=== PATIENT | female | born 1955 | race Caucasian/White ===

== ENCOUNTER 2019-08-30 07:10 | Inpatient (IN) | payer OTHER ==
[2019-08-14 12:25] VITALS: BMI 39.4
[2019-08-30] MEDS ORDERED: VANCOMYCIN 1,000 MG VIAL (RESTRICTED TO ID ONLY) ONE ×2 (07:23→14:16)
[2019-08-30] MEDS ORDERED: CEFAZOLIN 2 GM in DEXTROSE 5%-WATER - 50 ML IVPB ONE ×2 (07:23→07:33)
[2019-08-30] MEDS ORDERED: SODIUM CHLORIDE 0.9% P/F 10 ML VIAL IJ ONE (07:23)
[2019-08-30] MEDS ORDERED: TRANEXAMIC ACID 1000 MG/10 ML VIAL IVPUSH ONE ×2 (07:23→07:33)
[2019-08-30] MEDS ORDERED: ceFAZolin SODIUM 1 GM VIAL ONE (07:23)
[2019-08-30] MEDS ORDERED: SUCCINYLCHOLINE CHLORIDE 200 MG/10 ML SYRINGE ONE (07:23)
[2019-08-30] MEDS ORDERED: VANCOMYCIN 1,000 MG in DEXTROSE 5%-WATER - 250 ML IVPB ONE (07:23)
[2019-08-30] MEDS ORDERED: PROPOFOL 20 ML ONE ×3 (07:24)
[2019-08-30] MEDS ORDERED: VANCOMYCIN 1,250 MG in DEXTROSE 5%-WATER - 250 ML IVPB ONE (07:33)
[2019-08-30] MEDS ORDERED: BUPIVACAINE LIPOSOME/PF (EXPAREL) 266 MG/20 ML VIAL ONE (08:52)
[2019-08-30] MEDS ORDERED: MIDAZOLAM HCL 2 MG/2 ML SINGLE DOSE VIAL ONE ×2 (08:52→11:32)
[2019-08-30] MEDS ORDERED: BUPIVACAINE HCL/PF 0.5% (5 MG/ML) 30 ML VIAL IJ ONE (08:52)
[2019-08-30] MEDS ORDERED: WATER FOR INJ,STERILE 10 ML ONE (08:53)
[2019-08-30] MEDS ORDERED: BUPIVACAINE HCL/PF 0.5% (5MG/ML) 10 ML VIAL ONE (10:39)
[2019-08-30] MEDS ORDERED: PHENYLEPHRINE HCL 10 MG/1 ML SINGLE DOSE VIAL ONE (11:13)
[2019-08-30] MEDS ORDERED: MAGNESIUM HYDROX 2400MG/30ML ORAL SUSPENSION 30 ML CUP PO PRN (13:08)
[2019-08-30] MEDS ORDERED: MAG HYDROX/AL HYDROX/SIMETH 30 ML UNIT-DOSE CUP PO PRN (13:08)
[2019-08-30] MEDS ORDERED: ONDANSETRON 4 MG/2 ML VIAL IVPUSH PRN ×2 (13:08→13:57)
[2019-08-30] MEDS ORDERED: CYCLOBENZAPRINE HCL 10 MG TABLET (FP) PO PRN (13:12)
[2019-08-30] MEDS ORDERED: MELATONIN 5 MG TABLETS PO PRN (13:12)
[2019-08-30] MEDS ORDERED: LACTATED RINGERS SOLUTION 1,000 ML IV SCH ×2 (13:15→14:00)
[2019-08-30] MEDS ORDERED: oxyCODONE HCL 5 MG TABLET PO PRN (13:57)
[2019-08-30] MEDS ORDERED: ACETAMINOPHEN 1000 MG/100 ML VIAL (NON FORMULARY) IVPB ONE (13:57)
[2019-08-30] MEDS ORDERED: traMADol HCL 50 MG TABLET PO PRN (13:57)
[2019-08-30] MEDS: oxyCODONE HCL 5 MG TABLET PO PRN ×3 (16:31→21:06)
[2019-08-30] MEDS: CEFAZOLIN 1 GM/D5W 1 GM/50 ML BAG IVPB SCH (17:08)
[2019-08-30] MEDS: FERROUS SO4 325 MG TABLET (FP) PO SCH (17:08)
[2019-08-30] MEDS ORDERED: KETOROLAC TROMETHAMINE 30 MG/1 ML VIAL IVPUSH ONE (18:30)
[2019-08-30] MEDS: ASCORBIC ACID 500 MG TABLET (FP) PO SCH (21:04)
[2019-08-30] MEDS: PANTOPRAZOLE 40 MG TABLET (FP) PO SCH (21:05)
[2019-08-30] MEDS: ASPIRIN 81 MG CHEWABLE TABLETS PO SCH (21:05)
[2019-08-30] MEDS: SENNOSIDES/DOCUSATE COMBO (SENNA PLUS) TABLET (UD) PO SCH (21:05)
[2019-08-30] MEDS: ACETAMINOPHEN 325 MG TABLET (FP) PO SCH (21:05)
[2019-08-30] MEDS: oxyCODONE HCL 10 MG SUSTAINED ACTING TABLET PO SCH (21:06)
[2019-08-30] MEDS: MONTELUKAST NA 10 MG TABLET PO SCH (21:08)
[2019-08-30] MEDS ORDERED: VANCOMYCIN 1 GRAM (PRE-DOCKED) 1,000 MG/250 ML BAG IVPB ONE (21:30)
[2019-08-31] MEDS: oxyCODONE HCL 5 MG TABLET PO PRN ×6 (00:41→20:29)
[2019-08-31] MEDS: CEFAZOLIN 1 GM/D5W 1 GM/50 ML BAG IVPB SCH (01:22)
[2019-08-31] MEDS: ACETAMINOPHEN 325 MG TABLET (FP) PO SCH ×4 (02:19→20:28)
--- NOTE | 2019-08-31 04:18 | HP ---
CHIEF COMPLAINT: Right knee pain HISTORY OF PRESENT ILLNESS: 64 year-old female with a PMH significant for HTN, Type II NIDDM, GERD, and DJD s/p right total knee replacement on 08/[address] Marshall. PAST MEDICAL HISTORY: Hypertension Type II NIDDM GERD PAST SURGICAL HISTORY: Breast cyst Social History: Smoking: no Alcohol: no Drugs: no Allergies No Known Drug Allergies Allergy (Verified 08/14/19 12:11) HOME MEDICATIONS: Home Medications Medication Instructions Recorded Cyclobenzaprine HCl 10 mg PO ASDIR PRN 08/14/19 Ibuprofen 800 mg PO ASDIR PRN 08/14/19 Losartan/Hydrochlorothiazide 1 each PO DAILY 08/14/19 [Losartan-Hctz 100-25 mg Tab] Melatonin 5 mg PO HS PRN 08/14/19 Montelukast Sodium [Singulair] 10 mg PO HS 08/14/19 Pantoprazole Sodium [Protonix] 40 mg PO HS 08/14/19 REVIEW OF SYSTEMS CONSTITUTIONAL: Absent: fever, chills, diaphoresis, generalized weakness, malaise, loss of appetite, weight change HEENT: Absent: rhinorrhea, nasal congestion, throat pain, throat swelling, difficulty swallowing, mouth swelling, ear pain, eye pain, visual changes CARDIOVASCULAR: Absent: chest pain, syncope, palpitations, irregular heart rate, lightheadedness , peripheral edema RESPIRATORY: Absent: cough, shortness of breath, dyspnea with exertion, orthopnea, wheezing, stridor, hemoptysis GASTROINTESTINAL: Absent: abdominal pain, abdominal distension, nausea, vomiting, diarrhea, constipation, melena, hematochezia GENITOURINARY: Absent: dysuria, frequency, urgency, hesitancy, hematuria, flank pain, genital pain MUSCULOSKELETAL: Absent: myalgia, arthralgia, joint swelling, back pain, neck pain SKIN: Absent: rash, itching, pallor HEMATOLOGIC/IMMUNOLOGIC: Absent: easy bleeding, easy bruising, lymphadenopathy, frequent infections ENDOCRINE: Absent: unexplained weight gain, unexplained weight loss, heat intolerance, cold intolerance NEUROLOGIC: Absent: headache, focal weakness or paresthesias, dizziness, unsteady gait, seizure, mental status changes, bladder or bowel incontinence PSYCHIATRIC: Absent: anxiety, depression, suicidal or homicidal ideation, hallucinations. PHYSICAL EXAMINATION Vital Signs - 24 hr 08/30/19 08/30/19 08/30/19 07:57 13:45 13:50 Temperature 98.5 F 97.8 F Pulse Rate 85 74 76 Respiratory 18 16 16 Rate Blood Pressure 113/87 108/60 114/76 O2 Sat by Pulse 100 100 Oximetry (%) 08/30/19 08/30/19 08/30/19 13:55 14:00 14:15 Temperature Pulse Rate 78 77 67 Respiratory 16 16 16 Rate Blood Pressure 105/53 L 102/44 L 100/53 L O2 Sat by Pulse 100 100 100 Oximetry (%) 08/30/19 08/30/19 08/30/19 14:30 14:45 14:52 Temperature Pulse Rate 71 68 68 Respiratory 16 16 16 Rate Blood Pressure 108/48 L 114/51 L 126/59 L O2 Sat by Pulse 100 100 100 Oximetry (%) 08/30/19 08/30/19 08/30/19 15:15 19:00 22:33 Temperature 97.4 F L 98.6 F 98.3 F Pulse Rate 72 77 86 Respiratory 16 19 16 Rate Blood Pressure 136/59 L 140/57 L 130/61 O2 Sat by Pulse 100 99 99 Oximetry (%) 08/31/19 01:58 Temperature 98.5 F Pulse Rate 82 Respiratory 18 Rate Blood Pressure 140/62 O2 Sat by Pulse 100 Oximetry (%) GENERAL: Awake, alert, and fully oriented, in no acute distress. LUNGS: Breath sounds equal, clear to auscultation bilaterally. No wheezes, and no crackles. No accessory muscle use. HEART: Regular rate and rhythm, normal S1 and S2 ABDOMEN: Soft, nontender, not distended UPPER EXTREMITIES: 2+ pulses, warm, well-perfused. No cyanosis. No clubbing. No peripheral edema. LOWER EXTREMITIES: 2+ pulses, warm, well-perfused. No calf tenderness. No peripheral edema. RLE: surgical dressings c/d/i; + Hemovac drain CBCD WBC 13.4 K/mm3 (4.0-10.8) H 08/31/19 07:08 RBC 3.74 M/mm3 (3.60-5.2) 08/31/19 07:08 Hgb 11.4 GM/dl (10.7-15.3) 08/31/19 07:08 Hct 33.6 % (32.4-45.2) 08/31/19 07:08 MCV 89.8 fl (80-96) 08/31/19 07:08 MCHC 34.0 g/dl (32.0-36.0) 08/31/19 07:08 RDW 13.2 % (11.6-15.6) 08/31/19 07:08 Plt Count 293 K/MM3 (134-434) 08/31/19 07:08 MPV 7.5 fl (7.5-11.1) 08/31/19 07:08 CMP Sodium 134 mmol/L (136-145) L 08/31/19 07:08 Potassium 3.8 mmol/L (3.5-5.1) 08/31/19 07:08 Chloride 97 mmol/L (98-107) L 08/31/19 07:08 Carbon Dioxide 28 mmol/L (21-32) 08/31/19 07:08 Anion Gap 9 MMOL/L (8-16) 08/31/19 07:08 BUN 12.0 mg/dl (7-18) 08/31/19 07:08 Creatinine 0.7 mg/dl (0.55-1.3) 08/31/19 07:08 Calcium 8.8 mg/dl (8.5-10) 08/31/19 07:08 Pre op Hgb 13.2 BUN 19 Cr 0.8 Intra op Crystalloid 1L Vanc x 1g; ancef 2g x 1 ASSESSMENT/PLAN: 64 year-old female with a PMH significant for HTN, Type II NIDDM, GERD, and DJD s/p right total knee replacement on 08/[address] Marshall. s/p Right total knee replacement --POD #1 --perioperative antibiotics per surgery --pain management per surgery --ASA 81mg BID --protonix --bowel regimen --incentive spirometry --Hemovac drain, monitor output Hypertension --BP stable --continue losartan, HCTZ Type II NIDDM --Novolog sliding scale coverage GERD --protonix FEN Fluids: PO intake adequate Electrolytes: replete as indicated Nutrition: regular diet DVT prophylaxis: OOB, ambulation, SCDs, TEDs, ASA 81mg BID Physical therapy Dispo: continues to require inpatient care. Full code. Visit type - Emergency Visit Emergency Visit: No - New Patient This patient is new to me today: Yes Date on this admission: 08/31/19 - Critical Care Critical Care patient: No
[2019-08-31 07:16] LABS: HEMATOCRIT 33.6 % (32.4-45.2); HEMOGLOBIN 11.4 GM/dl (10.7-15.3); MCH 30.6 pg (25.7-33.7); MEAN CELL VOLUME 89.8 fl (80-96); MEAN PLT VOLUME 7.5 fl (7.5-11.1); PLATELET COUNT 293 K/MM3 (134-434); RBC 3.74 M/mm3 (3.60-5.2); RDW 13.2 % (11.6-15.6); WHITE BLOOD COUNT 13.4 K/mm3 (4.0-10.8)
[2019-08-31 07:29] LABS: CALCIUM 8.8 mg/dl (8.5-10); CREATININE 0.7 mg/dl (0.55-1.3); MAGNESIUM 1.6 mg/dL (1.8-2.4); POTASSIUM 3.8 mmol/L (3.5-5.1)
--- NOTE | 2019-08-31 07:45 | PN ---
Progress Note (short form) - Note Progress Note: POD #1 s/p Rt TKA No acute events since surgery per RN notes. C/o a lot of incisional pain. Pain somewhat controlled by medications ordered. Difficulty sleeping last night. Only oob to chair with assist. Voiding spontaneously. Denies n/v/f/c, CP, palpitations, SOB or DICKSON. Last Vital Signs Temp Pulse Resp BP Pulse Ox 98.5 F 91 H 18 122/52 L 95 08/31/19 06:00 08/31/19 06:00 08/31/19 01:58 08/31/19 06:00 08/31/19 06:00 CBC, BMP 08/31/19 07:08 08/31/19 07:08 DRAIN OUTPUT 08/30/19 08/30/19 08/31/19 18:38 22:33 06:00 RLE Hemeovac 100 65 120 GEN: nad LE: RLE dressing c/d/i. HV w/ sanguinous drainage. SCDs bilat Neuro: GMNVI bilat. Problem List - Problems (1) Status post total right knee replacement Assessment/Plan: POD #1 s/p Rt TKA - Anasthesia notified and will address pain control. - DVT PPx: -Chemical: ASA 81 mg po BID x 6 weeks -Mechanical: CAPRICE's, SCD's -Incentive Spirometer -PT/OT/Rehab, OOB. -WBAT RLE. -f/u drain output -Care per medical hospitalist team. -Case Management w/ regards for possible REHAB pending PT eval . Code(s): Z96.651 - PRESENCE OF RIGHT ARTIFICIAL KNEE JOINT (2) Osteoarthritis of right knee Code(s): M17.11 - UNILATERAL PRIMARY OSTEOARTHRITIS, RIGHT KNEE (3) HTN (hypertension) Assessment/Plan: BP control Code(s): I10 - ESSENTIAL (PRIMARY) HYPERTENSION
[2019-08-31] MEDS ORDERED: MAGNESIUM OXIDE 400 MG TABLET (FP) PO ONE (07:48)
[2019-08-31] MEDS ORDERED: KETOROLAC TROMETHAMINE 15 MG/ML VIAL IVPUSH PRN (08:30)
[2019-08-31] MEDS: FERROUS SO4 325 MG TABLET (FP) PO SCH ×2 (09:34→17:34)
[2019-08-31] MEDS: LOSARTAN 50MG/HCTZ 12.5MG 1 TAB (FP) PO SCH (09:35)
[2019-08-31] MEDS: SENNOSIDES/DOCUSATE COMBO (SENNA PLUS) TABLET (UD) PO SCH ×2 (09:35→21:23)
[2019-08-31] MEDS: oxyCODONE HCL 10 MG SUSTAINED ACTING TABLET PO SCH ×2 (09:37→21:23)
[2019-08-31] MEDS: ASCORBIC ACID 500 MG TABLET (FP) PO SCH ×2 (09:37→21:24)
[2019-08-31] MEDS: ASPIRIN 81 MG CHEWABLE TABLETS PO SCH ×2 (09:41→21:23)
[2019-08-31] MEDS: MULTIVITAMINS (DAILY MVI) TABLET (FP) PO SCH (09:41)
[2019-08-31] MEDS ORDERED: PATIENT'S OWN MEDICATION (NON-FORMULARY) (Losartan/Hydrochlorothiazide [Losartan-Hctz 100- PO SCH (10:00)
[2019-08-31] MEDS ORDERED: PANTOPRAZOLE 40 MG TABLET (FP) PO SCH (10:00)
--- NOTE | 2019-08-31 11:03 | PN ---
Progress Note (short form) - Note Progress Note: 64F s/p RIGHT total knee replacement POD #0. -Pain control: per anaesthesia team. -DVT PPx: -Chemical: ASA 81mg PO BID x 6 weeks. -Mechanical: CAPRICE's, SCD's. -Incentive spirometry q15 min. -PT/OT/Rehab, OOB. -WBAT RLE. -Post-op Ancef x 2 doses. -f/u post-op TOV: 8 hours max. -f/u AM labs. -Diet as tolerated. -Care per medical hospitalist team. -Discharge planning: f/u [facility] [place] [facility] 09/07/2019; call for appointment . -Will follow. Dean Marshall MD (Orthopaedic Surgery).
--- NOTE | 2019-08-31 11:04 | PN ---
Progress Note (short form) - Note Progress Note: 64F s/p RIGHT total knee replacement POD #0. -Pain control: per anaesthesia team. -DVT PPx: -Chemical: ASA 81mg PO BID x 6 weeks. -Mechanical: CAPRICE's, SCD's. -Incentive spirometry q15 min. -PT/OT/Rehab, OOB. -WBAT RLE. -Post-op Ancef x 2 doses. -f/u post-op TOV: 8 hours max. -f/u AM labs. -Diet as tolerated. -Care per medical hospitalist team. -Discharge planning: f/u [facility] [place] [facility] 09/07/2019; call for appointment . -Will follow. Dean Marhsall MD (Orthopaedic Surgery).
--- NOTE | 2019-08-31 11:10 | PN ---
Progress Note (short form) - Note Progress Note: POD 1 s/p R knee arthroplasty under spinal/R adductor canal block/ R selective tibial nerve block. Patient c/o pain overnight, now better controlled with the addition of scheduled Oxycontin po and Toradol IV. Patient actively participating in physical therapy. Reassurance given and encouraged patient to utilize additional prn po oxycodone and Toradol IV.
--- NOTE | 2019-08-31 11:10 | OP ---
Operative Note - Note: Operative Date: 08/30/19 Pre-Operative Diagnosis: Right knee DJD Operation: Right TKA Implants: Marizol Triathlon. Femur - 3. Tibia - 3. Poly - 9mm. Patella - 27mm, symmetric Surgeon: Dean Marshall Sewing Supervisor: Tobias Masrhall Anesthesiologist/JOB PLACEMENT SPECIALIST: Zurdo De Santiago Anesthesia: Spinal Specimens Removed: Bone, soft tissue Estimated Blood Loss (mls): 50 Fluid Volume Replaced (mls): 1,000 (Crystalloid) Operative Report Dictated: Yes
[2019-08-31] MEDS: PANTOPRAZOLE 40 MG TABLET (FP) PO SCH (21:23)
[2019-08-31] MEDS: MONTELUKAST NA 10 MG TABLET PO SCH (21:24)
[2019-09-01] MEDS: ACETAMINOPHEN 325 MG TABLET (FP) PO SCH ×3 (03:25→09:32)
[2019-09-01] MEDS: oxyCODONE HCL 5 MG TABLET PO PRN (05:37)
[2019-09-01 06:52] VITALS: BP 127/57; PULSE 97; TEMP 98.5
[2019-09-01 07:50] LABS: HEMATOCRIT 31.4 % (32.4-45.2); HEMOGLOBIN 10.9 GM/dl (10.7-15.3); MCH 31.2 pg (25.7-33.7); MCHC 34.7 g/dl (32.0-36.0); PLATELET COUNT 266 K/MM3 (134-434); RBC 3.49 M/mm3 (3.60-5.2); RDW 12.8 % (11.6-15.6); WHITE BLOOD COUNT 15.1 K/mm3 (4.0-10.8)
--- NOTE | 2019-09-01 09:27 | PN ---
Progress Note (short form) - Note Progress Note: POD 2, s/p R TKR Pt seen and examined. Reports she is doing "okay". Continues to have some pain with ambulation/excessive movement of the leg. Was oob with PT yesterday without issue. Tolerating Po, voiding without issue. Denies cp/sob, n/v/d. Vital Signs Temp 98.5 F 09/01/19 06:00 Pulse 97 H 09/01/19 06:00 Resp 17 09/01/19 06:00 BP 127/57 L 09/01/19 06:00 Pulse Ox 96 09/01/19 06:00 Intake & Output 08/31/19 08/31/19 09/01/19 11:59 23:59 11:59 Intake Total 600 240 Output Total 120 340 130 Balance -120 260 110 Weight 178 lb 15.999 oz Intake: Oral 600 240 Output: Drainage 120 190 30 Right Knee 120 190 30 Urine 150 100 Void 150 100 Other: Voiding Method Bedpan Toilet Toilet # Unmeasured Voids Void 2 2 Bowel Movement No CBC, BMP 09/01/19 07:35 08/31/19 07:08 Gen: awake, alert, nad. Sitting in chair Resp: unlabored on RA LE: RLE with dressing c/d/i, ice packs in place, drain in place with scant serosanguinous drainage in reservoir. Drain removed, tip intact, pt tolerated well. 4x[address] for <5mins with cessation of oozing, harman re-dressed. B/L LE's 5/5 dorsi/plantarflexion, 5/5 ehl/fhl, silt b/l les, mild edema noted, compartments soft. SCDS in place and on A/P: 64 y/o F w/ PMHx HTN, Type II NIDDM, GERD, and DJD admitted for elective joint replacement, now POD 2, s/p right total knee replacement on 08/30. Low grade temp 100F overnight, IS encouraged, mildly tachy overnight (likely due to pain), remainder of VSS Labs stable YOANA output 30ml overnight, removed without issue. -D/C instructions including pain regimen plan discussed at length with pt. Pt verbalized understanding -Importance of adherence to ASA 81mg bid for DVT prophylaxis discussed at length -Requesting d/c today -All scripts sent d/w attendings dr Brown
[2019-09-01] MEDS: LOSARTAN 50MG/HCTZ 12.5MG 1 TAB (FP) PO SCH (09:30)
[2019-09-01] MEDS: SENNOSIDES/DOCUSATE COMBO (SENNA PLUS) TABLET (UD) PO SCH (09:31)
[2019-09-01] MEDS: ASCORBIC ACID 500 MG TABLET (FP) PO SCH (09:31)
[2019-09-01] MEDS: MULTIVITAMINS (DAILY MVI) TABLET (FP) PO SCH (09:31)
[2019-09-01] MEDS: oxyCODONE HCL 10 MG SUSTAINED ACTING TABLET PO SCH (09:32)
[2019-09-01] MEDS: ASPIRIN 81 MG CHEWABLE TABLETS PO SCH (09:32)
--- NOTE | 2019-09-01 11:29 | DS ---
"Physical Exam: SUBJECTIVE: Patient seen and examined OBJECTIVE: Vital Signs Period Temp Pulse Resp BP Sys/Curran Pulse Ox Last 24 Hr 98.5 F-100.0 F 93-100 16-18 102-132/47-80 92-96 PHYSICAL EXAM GENERAL: Awake, alert, and fully oriented, in no acute distress. LUNGS: Breath sounds equal, clear to auscultation bilaterally. No wheezes, and no crackles. No accessory muscle use. HEART: Regular rate and rhythm, normal S1 and S2 ABDOMEN: Soft, nontender, not distended UPPER EXTREMITIES: 2+ pulses, warm, well-perfused. No cyanosis. No clubbing. No peripheral edema. LOWER EXTREMITIES: 2+ pulses, warm, well-perfused. No calf tenderness. No peripheral edema. RLE: surgical dressings c/d/i LABS Laboratory Results - last 24 hr 09/01/19 07:35 WBC 15.1 H RBC 3.49 L Hgb 10.9 Hct 31.4 L MCV 90.0 MCH 31.2 MCHC 34.7 RDW 12.8 Plt Count 266 MPV 8.0 HOSPITAL COURSE: Date of Admission:08/30/19 Date of Discharge: 09/01/19 64 year-old female with a PMH significant for HTN, Type II NIDDM, GERD, and DJD s/p right total knee replacement on 08/[address] Marshall. s/p Right total knee replacement --perioperative antibiotics complete --pain well-managed with PO meds --ASA 81mg BID x 6 weeks Minutes to complete discharge: 35 Discharge Summary Problems reviewed: Yes Reason For Visit: OSTEOARTHRITIS OF THE KNEES Current Active Problems HTN (hypertension) (Acute) Osteoarthritis of right knee (Acute) Status post total right knee replacement (Acute) Condition: Improved - Instructions Diet, Activity, Other Instructions: Dr. Marshall Discharge Instructions for Knee Replacement Post Operative Instructions Physical activity Physical Therapist will come to your home for the first 5 days. You will be set up with outpatient PT at your first post-operative visit. Use assistive devices for ambulation at all times. Weight bearing as tolerated on your surgical side. Do not put pillow under knee. May put pillow under heel. Wound care Leave your surgical dressing in place. Do not change the dressing until seen by your surgeon in the office. No baths or showers. Do not submerge your incision. Do not apply any ointments or lotions to your incision. Please call the office if your dressing is soiled/dirty or is falling off. Apply Graduated Compression Stockings (TEDS) to both lower extremities - remove daily for hygiene ONLY. Diet There are no dietary restrictions. Eat healthy, high-fiber foods. Drink 6 to 8 glasses of liquid each day. This will assist in keeping your bowels are regular. We recommend taking an over the counter stool softener daily if you are utilizing the narcotic pain medications as this can lead to constipation. If you become constipated you may use Miralax which can be purchased over the counter (please follow the drug abuse worker's dosage instructions). Pain management You may take (Tylenol) Acetaminophen 1000mg every 6 hours. Do not exceed more than 4g (4000mg) in 24 hours as this can lead to liver damage/failure. If you are taking 4g of Tylenol per day (the above regimen), do not continue this regimen for more then 10 days. You may take Ibuprofen as needed, please follow the drug abuse worker's dosage instructions. Do not exceed the dosage recommended by the drug abuse worker as this can lead to kidney damage/failure. We recommend keeping track of the dosage and time you take each medication to ensure you do not exceed the drug abuse worker's recommended daily dosage. Take Ibuprofen with food, Acetaminophen may be taken on an empty stomach. Any pain prescription medication ordered should be taken as prescribed for moderate to severe pain. If the pain regimen described above is not controlling your pain, please contact the office. Do not drive, drink alcohol or operate heavy machinery while taking narcotic pain medications. Do not mix narcotic pain medications with sedatives/benzodiazepines or sleeping aids unless discussed with your doctor. Take Aspirin 81 mg two times a day for a total of 6 weeks to prevent blood clots. Call Dr. Marshall for any of the following: Severe pain not relieved by medication Fever of 101 or higher Excessive bleeding or drainage on dressing Inability to urinate If you experience chest pain or shortness of breath, please seek emergency care immediately. Please call the office at to confirm your post-op appointment for the week following surgery. This report was requested by: Belia Rosario | Reference #: [id number] Others' Prescriptions Patient Name: Lynn Fowler Date: 1955 Address: [address] [place] [address] [address] [place] [address] Sex: Female Rx Written Rx Dispensed Drug Quantity Days Supply Prescriber Name 08/04/2019 08/10/2019 tramadol hcl 50 mg tablet 90 30 Dean Marshall MS, MD Referrals: Tobias Marshall MD [Staff Physician] - Disposition: HOME - Home Medications Comprehensive Discharge Medication List: Ambulatory Orders Cyclobenzaprine HCl 10 mg PO ASDIR PRN 08/14/19 Ibuprofen 800 mg PO ASDIR PRN 08/14/19 Losartan/Hydrochlorothiazide [Losartan-Hctz 100-25 mg Tab] 1 each PO DAILY 08/14 Melatonin 5 mg PO HS PRN 08/14/19 Montelukast Sodium [Singulair] 10 mg PO HS 08/14/19 Pantoprazole Sodium [Protonix] 40 mg PO HS 08/14/19 Acetaminophen 1,000 mg PO Q6H 7 Days #28 tablet 09/01/19 Aspirin [ASA -] 81 mg PO BID 42 Days #84 tab.chew 09/01/19 Docusate Sodium [Colace] 100 mg PO BID 10 Days #20 capsule 09/01/19 oxyCODONE HCL [Roxicodone -] 5 mg PO Q6H PRN #28 tablet MDD 5 09/01/19 This patient is new to me today: No Emergency Visit: No Critical Care patient: No - Discharge Referral Referred to [facility] No"
--- NOTE | 2019-09-04 15:54 | OP ---
DATE OF OPERATION: 08/30/2019 SURGEON: Dean Marshall MD IT TECHNICAL SUPPORT SPECIALIST: Tobias Marshall MD; Marissa Felipe PA-C PREOPERATIVE DIAGNOSIS: Tricompartment osteoarthritis, knee, with fixed valgus fixed flexion deformity. POSTOPERATIVE DIAGNOSIS: Tricompartment osteoarthritis, knee, with fixed valgus fixed flexion deformity. OPERATION PERFORMED: Right posterior stabilized total knee arthroplasty (cemented Marizol). ANESTHESIA: Conscious sedation with spinal anesthesia and peripheral nerve block. ANTIBIOTICS GIVEN: Kefzol 2 g, vancomycin 1 g, Kefzol 1 g given at the end of the procedure. OPERATION DETAILS: Patient correctly identified, brought to the operating room. Right lower extremity prepped and draped in the routine manner with Betadine scrub solution, wiped off with alcohol, DuraPrep applied. A timeout was called. Imaging was available for intraoperative evaluation. A midline incision was utilized. Skin and subcutaneous tissue taken down to the quadriceps mechanism. The first part of the dissection was along the proximal medial aspect of the tibia alongside the medial tibial tubercle. The soft tissue was freed off the bone bed and then curved at almost 70 degrees to aim posteromedially, leaving a cuff of tissue attached to the inferior border of vastus medialis. The epimysium of the vastus medialis was dissected off the muscle all the way around to the medial aspect of the attachment to the intermuscular plane. The muscle was lifted and dissected off the intermuscular plane, bringing complete freedom of the muscle for a sub-vastus approach. In the plane above the suprapatellar pouch, a blunt Hohmann was placed to help mobilize the patella laterally. The suprapatellar pouch was incised. This freed it completely and the suprapatellar femoral bone bed was resected of all soft tissue using unipolar Bovie. The patella was cut immediately because of the large bulk of the patella. This was also a bipartite patella in situ. The patella was held with 2 sharp towel clamps and a Hohmann placed on the undersurface of the patella, everting it, and an easy cut of the patella freehand from patellar ligament to quadriceps tendon, blunt, performed. A 27-mm lollypop jig applied and the drill holes were drilled. Once this had been applied, the tibia was cut to neutral and measured to receive a size 3 tibial tray. The femur then, appropriately, femoral jigs were inserted, first by the initial starting drill hole, slightly medial of the insertion point of the posterior cruciate ligament attachment. The femoral condyle was deficient both distally as well as posteriorly. Utilizing the concept of Lavinia's line to line up the intercondylar within the confines of the trochlear groove, the jig was set and the setting was for a 4-degree valgus +10 mm distal resection, that is, proximalization of the joint line to accommodate the fixed flexion deformity. Once this had been performed, the measurement for the femoral component was a size 3 to match the size 3 tibia. The appropriate box cut was then made with the appropriate jig device, and the femoral component was applied and matched to the tibia with the polyethylene liner over its 9 mm dimension. He was brought into full extension. Because of the tightness of the posterolateral corner, the popliteus was transected. This enabled us to seat it to the tibial tray with no difficulty. Once performed, tracking of the patella was normal and neutral. The knee range of movement was from 0 to about 110 degrees and completely stable throughout all ranges of motion. Once we were happy with the final trialing, we went ahead and washed; the femoral, tibial and patellar surfaces were thoroughly lavaged with pulse lavage. A cementing was in 1 stage with normal cement. All extraneous cement was removed, the cement cured, and the remains of cement were removed appropriately. The joint was then washed out thoroughly with pulse lavage. A size 9 posterior stabilized polyethylene liner inserted. The knee was reduced and the appropriate range of motion was well maintained from 0 to about 110 degrees. Ligament stability in the coronal and sagittal transverse plane is normal. Shock test to test the tension the flexion gap was most adequate. The wounds were thoroughly lavaged again. Closure: Fascia, retinaculum: 1 Vicryl; subcutaneous: 1 and 2-0 Vicryl; skin: 3-0 Monocryl with Steri-Strips. Drainage: A 1/8-inch Hemovac brought out laterally to drain the actual sub-vastus bone bed. OVERALL COMMENT: The operation went extremely well, no complications. MD SHILO Schrader/[id number]
--- NOTE | 2019-09-04 16:14 | PATH ---
Surgical Pathology Report Patient Name: ABILIO DRAPER Med. Rec. #: [id number] /Age/Gender: 1955 (Age: 64) / F Account: [id number] Location: [facility] Taken: 08/30/2019 Received: 08/30/2019 Reported: 09/04/2019 Physicians: Dean Marshall M.D. Specimen(s) Received RIGHT KNEE BONES Clinical History Right knee osteoarthritis Final Diagnosis BONES, RIGHT KNEE, TOTAL KNEE REPLACEMENT: DEGENERATIVE JOINT DISEASE. Electronically Signed Marissa Ashby M.D. Gross Description Received in formalin labeled "bones right knee," is a 10.0 x 7.5 x 2.0 cm aggregate of multiple ulloa-yellow, irregular portions of bone and soft tissue. The tibial plateau measures 7.0 x 4.8 x 1.4 cm. There is a 0.6 cm greatest dimension area of eburnation identified. The remaining articular surfaces are ulloa-yellow and focally granular. The underlying trabecular bone is yellow and hard. Physics Technical Officer sections are submitted in one cassette, following decalcification. 08/31/2019 [facility]/2019
== END 2019-09-01 12:23 | disposition home or self-care (01) | DRG 470 ==
LOC: FM/S 07:10
PROVIDERS: ADMIT Internal Medicine; ATTEND Nurse Practitioner Acute Care
PROC: 0SRC0J9 Replacement of Right Knee Joint with Synthetic Substitute, Cemented, Open Approach (ICD-10-PCS; principal; 2019-08-30 11:22)
DX: M17.11 Unilateral primary osteoarthritis, right knee (principal); M21.00 Valgus deformity, not elsewhere classified, unspecified site; I10 Essential (primary) hypertension; E11.9 Type 2 diabetes mellitus without complications; K21.9 Gastro-esophageal reflux disease without esophagitis
CPT/HCPCS: 36415; 73560-TC-RT-FY; 80048; 83735; 85027; 88304-TC; 88311-TC; 94760; 97116-GP; 97163-GP; J0131